=== PATIENT | male | born 2000 | race Caucasian/White ===

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

== ENCOUNTER 2019-03-10 13:04 | Emergency (ER) | payer SELFPAY ==
[~2019-03-10] VITALS: Ht 172.7 cm; Wt 82.0 kg
[2019-03-10 16:42] VITALS: BP 100/66
== END 2019-03-10 19:08 | disposition home or self-care (01) ==
LOC: ER 13:04
DX: H01.004 Unspecified blepharitis left upper eyelid (principal); F17.200 Nicotine dependence, unspecified, uncomplicated
CPT/HCPCS: 99283